=== PATIENT | female | born 1990 | race Two or more races ===

== ENCOUNTER 2016-05-30 03:35 | Inpatient (IN) | payer OTHER ==
[2016-05-30 04:08] VITALS: BMI 30.9
--- NOTE | 2016-05-30 08:04 | US ---
OB LIMITED COMPARISON: None HISTORY: Gestational age 38 weeks 6 days. heart rate decelerations. Evaluate amniotic fluid index: Technique: Transabdominal FINDINGS: Amniotic fluid index: 8.1 cm IMPRESSION: 1. Amniotic fluid index: 8.1 cm. Preliminary report by [facility] radiologist Camryn Contreras MD 05/30/2016 at 06:30
[2016-05-30] MEDS ORDERED: LACTATED RINGERS 1,000 ML IV PRN (11:26)
[2016-05-30] MEDS ORDERED: OXYTOCIN IN LR 500 ML IV ONE ×2 (11:26→11:29)
[2016-05-30] MEDS ORDERED: PUMP TUBING ONE (11:29)
[2016-05-30] MEDS ORDERED: LIDOCAINE 1% (PRES FREE) 30 ML VIAL ONE (11:29)
[2016-05-30] MEDS ORDERED: SODIUM CHLORIDE 0.9% FLUSH 10 ML ONE (11:29)
[2016-05-30] MEDS ORDERED: MINERAL OIL 25 ML BOT ONE (11:29)
[2016-05-30] MEDS ORDERED: IV START KIT ONE (11:29)
[2016-05-30] MEDS ORDERED: OXYTOCIN 10 UNITS/ML VIAL ONE ×4 (11:29→18:35)
[2016-05-30] MEDS ORDERED: LIDOCAINE Viscous 2% 15 ML UDCUP ONE (11:29)
[2016-05-30 12:35] LABS: HEMATOCRIT 42.7 % (37.0-47.0); HEMOGLOBIN 14.8 gm/l (12.0-16.0); MEAN CELL VOLUME 90.3 fl (81.0-99.0); MEAN CORPUSCULAR HEMOGLOBIN 31.3 pg (27.0-31.0); MEAN CORPUSCULAR HGB CONC 34.7 g/dl (33.0-37.0)
[2016-05-30] MEDS ORDERED: OXYTOCIN IN LR 500 ML IV PRN (14:26)
[2016-05-30] MEDS ORDERED: LACTATED RINGERS 1,000 ML IV SCH ×2 (14:30→16:30)
[2016-05-30] MEDS ORDERED: FENTANYL 100 MCG/2 ML VIAL IV PRN (15:56)
[2016-05-30] MEDS ORDERED: EPIDURAL PUMP SET ONE (16:02)
[2016-05-30] MEDS ORDERED: FENTANYL/ROPIVACAINE EPIDURAL 250 ML EP ONE (16:03)
[2016-05-30] MEDS ORDERED: EPHEDRINE SULFATE 50 MG/ML 1ML VIAL IV PRN ×2 (16:30→18:30)
[2016-05-30] MEDS ORDERED: DIPHENHYDRAMINE HCL 50 MG/1 ML VIAL IV PRN ×3 (16:30→19:37)
[2016-05-30] MEDS ORDERED: LACTATED RINGERS 500 ML IV PRN (16:30)
[2016-05-30] MEDS ORDERED: NALBUPHINE HCL 20 MG/ML AMP IV PRN ×2 (16:30→18:30)
[2016-05-30] MEDS ORDERED: SODIUM CHLORIDE 0.9% 500 ML IV PRN (16:30)
[2016-05-30] MEDS ORDERED: ONDANSETRON 4 MG/2ML 2 ML VIAL IV PRN ×3 (16:30→19:37)
[2016-05-30] MEDS ORDERED: NALOXONE HCL 0.4 MG/ML VIAL IV PRN ×2 (16:30→18:30)
[2016-05-30] MEDS ORDERED: METOCLOPRAMIDE HCL 5 MG/ML 2ML VIAL IV PRN (16:30)
[2016-05-30] MEDS ORDERED: EPIDURAL PROCEDURE TRAY ONE (16:31)
[2016-05-30] MEDS ORDERED: SODIUM CHLORIDE 0.9% 500 ML ONE (17:18)
[2016-05-30] MEDS ORDERED: CEFAZOLIN SODIUM 2 GRAM DUPLEX 50 ML IV ONE (17:51)
[2016-05-30] MEDS ORDERED: ROPIVACAINE 0.75% 20 ML AMP ONE (17:52)
[2016-05-30] MEDS ORDERED: FENTANYL 100 MCG/2 ML VIAL ONE (17:53)
[2016-05-30] MEDS ORDERED: MORPHINE SULFATE (DURAMORPH) 1 MG/ML 10ML AMP ONE (18:14)
[2016-05-30] MEDS ORDERED: MORPHINE SULFATE 10 MG/ML SYRINGE IV PRN (18:30)
[2016-05-30] MEDS ORDERED: PROMETHAZINE HCL 25 MG/ML VIAL IM PRN (18:30)
[2016-05-30] MEDS ORDERED: MORPHINE SULFATE 2 MG/ML SYRINGE IV PRN (18:30)
[2016-05-30] MEDS ORDERED: MORPHINE SULFATE 4 MG/ML SYRINGE IV PRN (18:30)
[2016-05-30] MEDS ORDERED: HYDROMORPHONE HCL 1 MG/ML SYRINGE IV PRN (18:30)
[2016-05-30] MEDS ORDERED: HYDROMORPHONE HCL 2 MG/ML SYRINGE IV PRN (18:30)
[2016-05-30] MEDS ORDERED: MIDAZOLAM HCL 1 MG/ML 2ML VIAL ONE (18:33)
[2016-05-30] MEDS ORDERED: PHENYLEPHRINE 10 MG/1 ML (1%) VIAL ONE (18:34)
[2016-05-30] MEDS ORDERED: FLU VACC 2016-17 (36MO-64Y)/PF 60 MCG/0.5 ML SYRINGE IM V ONE (18:36)
[2016-05-30] MEDS ORDERED: KETOROLAC TROMETHAMINE 30 MG/ML 1 ML VIAL ONE (18:38)
[2016-05-30] MEDS ORDERED: KETOROLAC TROMETHAMINE 30 MG/ML 1 ML VIAL IV PRN (18:38)
[2016-05-30] MEDS ORDERED: DIPHTH,PERTUSS(ACELL),TET VAC 0.5 ML VIAL IM V ONE (19:37)
[2016-05-30] MEDS ORDERED: MEASLES,MUMPS&RUBELLA VACCINE 0.5 ML VIAL SUB-Q V ONE (19:37)
[2016-05-30] MEDS ORDERED: DIPHENHYDRAMINE HCL 25 MG CAPSULE PO PRN (19:37)
[2016-05-30] MEDS: D5LR 1,000 ML IV SCH (20:28)
[2016-05-30] MEDS: KETOROLAC TROMETHAMINE 30 MG/ML 1 ML VIAL IV SCH (20:41)
--- NOTE | 2016-05-30 20:55 | HP ---
JHONNY ZAMUDIO [id number] DATE OF SERVICE: 05/30/2016 PREOPERATIVE DIAGNOSIS: Intrauterine at term, with distress. OPERATION PLANNED: A PRIMARY LOW-TRANSVERSE CAESARIAN SECTION. HISTORY OF PRESENT ILLNESS: The patient is a 25-year-old G-1, P-0 woman with an EDC of 06/08/2016, currently at 38 weeks and two days. She has had an uncomplicated course. She presented to labor and delivery early this morning with early labor. Her cervix was really not changing, but the tracing showed that the baby had two eight to ten minute prolonged decelerations, with recovery. Because of that we kept her and kept observing her. The baby started to look better and by 10 o'clock this morning her cervix had changed and was now 390 and -1. She is admitted for labor. She then had artificial rupture of membranes this afternoon, with clear fluid, but the baby has developed again more variables and two prolonged decelerations. An IUPC was placed and an amnioinfusion begun. This did not seem to make a big difference between the decelerations. The baby looks very good, with a reactive tracing, however, her cervix was still 4 cm. We are unable to start the Pitocin because of the decelerations, and I do not think this baby is going to tolerate several more hours of labor, and therefore I have recommended a . PAST MEDICAL HISTORY: Denies major medical problems. PAST SURGICAL HISTORY: None. ALLERGIES: None. MEDICINES: Vitamins. SOCIAL HISTORY: The patient is [place]i-speaking. She lives with her . She does not smoke and does not use alcohol. FAMILY HISTORY: Noncontributory. REVIEW OF SYSTEMS: Patient denies any fever, chills, diarrhea, nausea or constipation. PHYSICAL EXAMINATION: GENERAL: She is a healthy-appearing woman. VITAL SIGNS: Stable. Afebrile. HEENT: Normal. LUNGS: Clear. HEART: Normal S1, S2. ABDOMEN: Soft. Fundal height of 38 cm. Good heart tones as described above. PELVIC: The cervix is 4 cm, 100% effaced, and -1 to -2 station, vertex presentation. IMPRESSION: The patient at term, with persistent variable, unable to tolerate labor. PLAN: To do a primary low-transverse caesarian section.
[2016-05-30] MEDS: DOCUSATE SODIUM 100 MG CAPSULE PO SCH (21:02)
[2016-05-31] MEDS: KETOROLAC TROMETHAMINE 30 MG/ML 1 ML VIAL IV SCH ×4 (01:26→21:01)
[2016-05-31] MEDS: D5LR 1,000 ML IV SCH ×3 (06:36→21:00)
[2016-05-31 07:00] LABS: HEMATOCRIT 36.6 % (37.0-47.0); HEMOGLOBIN 12.7 gm/l (12.0-16.0); MEAN CELL VOLUME 90.8 fl (81.0-99.0); MEAN CORPUSCULAR HEMOGLOBIN 31.5 pg (27.0-31.0); MEAN CORPUSCULAR HGB CONC 34.7 g/dl (33.0-37.0); RED CELL DISTRIBUTION WIDTH 13.1 % (11.5-14.5)
[2016-05-31] MEDS: DOCUSATE SODIUM 100 MG CAPSULE PO SCH ×2 (09:59→21:40)
[2016-05-31] MEDS: PRENATAL VIT/FE FUMARATE/FA 1 TABLET PO SCH (09:59)
--- NOTE | 2016-05-31 11:10 | PDOC44 ---
- Subjective Day: 1 Reports Pain Tolerable, Reports , Reports Lochia Light - Objective Temp Pulse Resp BP Pulse Ox 99.4 F 93 18 102/70 98 05/31/16 09:32 05/31/16 09:32 05/31/16 04:05 05/31/16 09:32 05/31/16 04:05 Lab Results 05/31/16 05/30/16 06:30 12:00 WBC 17.4 H 15.3 H RBC 4.03 L 4.73 Hgb 12.7 D 14.8 Hct 36.6 L 42.7 Plt Count 179 199 05/31/16 05/30/16 06:30 12:00 MCH 31.5 H 31.3 H Current Medications Generic Name Dose Route Start Last Admin Trade Name Freq PRN Reason Stop Dose Admin Diphenhydramine HCl 25 - 50 mg 05/30/16 19:37 Benadryl PO Q6H PRN Itching (Mild/Moderate) Diphenhydramine HCl 25 - 50 mg 05/30/16 19:37 Benadryl IV Q6H PRN Itching (Severe) Diphenhydramine HCl 25 - 50 mg 05/30/16 18:30 Benadryl IV 05/31/16 18:30 Q4H PRN Itching Docusate Sodium 100 mg 05/30/16 21:00 05/31/16 09:59 Colace PO 100 mg BID MIROSLAVA Administration Emollient Ointment 1 applic 05/30/16 19:37 [id number] TP PRN PRN sore nipples Ephedrine Sulfate 5 - 10 mg 05/30/16 18:30 Ephedrine Sulfate IV 05/31/16 18:30 Q5M PRN Hydromorphone HCl 0.5 - 2 mg 05/30/16 18:30 Dilaudid IV 05/31/16 18:30 Q1H PRN Pain (Breakthrough) Hydromorphone HCl 0.5 - 2 mg 05/30/16 18:30 Dilaudid IV 05/31/16 18:30 Q1H PRN Pain Ropivacaine/Fentanyl/NS 250 mls @ 0 mls/hr 05/30/16 16:30 Fentanyl 2 Mcg/Ml + Ropivacaine 0.125% Ep Bag EP EPI MIROSLAVA Protocol Per Protocol Dextrose/Lactated Ringer's 1,000 mls @ 125 mls/hr 05/30/16 19:37 05/31/16 06:36 D5lr IV Not Given .Q8H MIROSLAVA Ibuprofen 800 mg 05/30/16 18:38 Motrin PO Q6H PRN Pain Ketorolac Tromethamine 30 mg 05/30/16 18:38 Toradol IV Q6H PRN Pain (Mild/Moderate) Ketorolac Tromethamine 30 mg 05/30/16 18:30 05/31/16 07:36 Toradol IV 05/31/16 18:30 30 mg Q6H MIROSLAVA Administration Morphine Sulfate 1 - 5 mg 05/30/16 18:30 Morphine Sulfate IV 05/31/16 18:30 Q1H PRN Pain (Breakthrough) Morphine Sulfate 1 - 5 mg 05/30/16 18:30 Morphine Sulfate IV 05/31/16 18:30 Q1H PRN Pain (Breakthrough) Morphine Sulfate 1 - 5 mg 05/30/16 18:30 Morphine Sulfate IV 05/31/16 18:30 Q1H PRN Pain (Breakthrough) Multivi/Iron Carb/Fe Sulf/FA/Prenat 1 tab 05/31/16 09:00 05/31/16 09:59 Plus PO 1 tab DAILY MIROSLAVA Administration Nalbuphine HCl 1 - 5 mg 05/30/16 18:30 Nubain IV 05/31/16 18:30 Q4H PRN Itching Naloxone HCl 0.2 - 0.4 mg 05/30/16 18:30 Narcan IV 05/31/16 18:30 Q5M PRN Ondansetron HCl 4 mg 05/30/16 19:37 05/30/16 21:24 Zofran IV 4 mg Q6H PRN Administration Nausea/Vomiting Ondansetron HCl 4 mg 05/30/16 18:30 Zofran IV 05/31/16 18:30 Q6H PRN Nausea/Vomiting Oxycodone/Acetaminophen 1 - 2 tab 05/30/16 19:37 Percocet 5/325 PO Q4H PRN Pain (Moderate) Promethazine HCl 6.25 - 12.5 mg 05/30/16 18:30 Phenergan IM 05/31/16 18:30 Q4H PRN Nausea/Vomiting Sodium Chloride 10 ml 05/30/16 19:37 05/31/16 07:37 Normal Saline 10ml Flush IV 10 ml PRN PRN Administration IV Flush - Physical Exam General: Afebrile Psych/Mental Status: Mood/Affect Appropriate Breast: Soft Fundus: Firm Abdomen: Normal Bowel Sounds Genitourinary: Normal Female Genitalia Disposition: Stable
--- NOTE | 2016-05-31 13:51 | OP ---
JHONNY ZAMUDIO DATE OF OPERATION: May 30, 2016 PREOPERATIVE DIAGNOSES: Intrauterine at term with distress. POSTOPERATIVE DIAGNOSES: Intrauterine at term with distress OPERATION PERFORMED: PRIMARY LOW-TRANSVERSE SECTION. SURGEON: Jabari Macedo M.D. DIETARY WORKER: Juan Ni M.D. DETAILS OF PROCEDURE: The patient was taken to the operating room with her epidural anesthesia in place. She was placed in the supine position and prepped and draped in the usual sterile fashion. A Pfannenstiel skin incision was made with a scalpel. A second scalpel was used to reach the fascia. The fascial incision was extended with Byrd scissors. The peritoneum was entered with Metzenbaums and extended laterally. A self-retaining retractor was inserted. The peritoneum overlying the lower uterine segment was taken transversely with Metzenbaum scissors, and the bladder was pushed downwards. The uterus was entered making a small amy in the lower uterine segment and extending it laterally with fingers. Amniotic fluid was clear. The umbilical cord was right at the neck and head and the incision against the uterine wall. A liveborn male was delivered from vertex presentation without complication. The placenta was manually removed and complete. The uterus was closed in layers with the first layer being a running locked stitch of 0 Vicryl. The second was an imbricating layer of #0 Vicryl. Hemostasis was checked and found to be good. The tubes and ovaries were normal. The retractors were removed. The anterior peritoneum was closed with a running suture of #2-0 Vicryl. The fascia was closed with two separate running sutures of #0 Vicryl. The skin was closed with malinda. The patient tolerated the procedure well, and was taken to the recovery room in stable condition. All sponge, instrument and needle counts were correct. The estimated blood was 700 mL.
[2016-05-31] MEDS: FENTANYL/ROPIVACAINE EPIDURAL 250 ML EP SCH ×2 (19:46→19:47)
[2016-05-31] MEDS: IBUPROFEN 800 MG TABLET PO PRN (21:40)
[2016-05-31] MEDS: LANOLIN 50 APPLIC/7G TUBE TP PRN (22:39)
[2016-05-31] MEDS: OXYCODONE/ACETAMINOPHEN 5/325 MG TABLET PO PRN (22:40)
[2016-06-01] MEDS: D5LR 1,000 ML IV SCH ×2 (05:53→20:39)
[2016-06-01] MEDS: OXYCODONE/ACETAMINOPHEN 5/325 MG TABLET PO PRN ×4 (05:53→18:43)
[2016-06-01] MEDS: IBUPROFEN 800 MG TABLET PO PRN ×3 (05:53→22:39)
[2016-06-01] MEDS: DOCUSATE SODIUM 100 MG CAPSULE PO SCH ×2 (09:30→20:14)
[2016-06-01] MEDS: PRENATAL VIT/FE FUMARATE/FA 1 TABLET PO SCH (09:31)
--- NOTE | 2016-06-01 11:18 | PDOC44 ---
- Subjective Day: 2 Reports Pain Tolerable, Reports , Reports Lochia Light - Objective Temp Pulse Resp BP Pulse Ox 98.1 F 75 16 101/58 98 06/01/16 08:45 06/01/16 08:45 06/01/16 08:45 06/01/16 08:45 05/31/16 04:05 Current Medications Generic Name Dose Route Start Last Admin Trade Name Freq PRN Reason Stop Dose Admin Diphenhydramine HCl 25 - 50 mg 05/30/16 19:37 Benadryl PO Q6H PRN Itching (Mild/Moderate) Diphenhydramine HCl 25 - 50 mg 05/30/16 19:37 Benadryl IV Q6H PRN Itching (Severe) Docusate Sodium 100 mg 05/30/16 21:00 06/01/16 09:30 Colace PO 100 mg BID MIROSLAVA Administration Emollient Ointment 1 applic 05/30/16 19:37 05/31/16 22:39 [id number] TP 1 bot PRN PRN Administration sore nipples Ropivacaine/Fentanyl/NS 250 mls @ 0 mls/hr 05/30/16 16:30 05/31/16 19:47 Fentanyl 2 Mcg/Ml + Ropivacaine 0.125% Ep Bag EP Not Given EPI MIROSLAVA Protocol Per Protocol Dextrose/Lactated Ringer's 1,000 mls @ 125 mls/hr 05/30/16 19:37 06/01/16 05:53 D5lr IV Not Given .Q8H MIROSLAVA Ibuprofen 800 mg 05/30/16 18:38 06/01/16 05:53 Motrin PO 800 mg Q6H PRN Administration Pain Ketorolac Tromethamine 30 mg 05/30/16 18:38 Toradol IV Q6H PRN Pain (Mild/Moderate) Multivi/Iron Carb/Fe Sulf/FA/Prenat 1 tab 05/31/16 09:00 06/01/16 09:31 Plus PO 1 tab DAILY MIROSLAVA Administration Ondansetron HCl 4 mg 05/30/16 19:37 05/30/16 21:24 Zofran IV 4 mg Q6H PRN Administration Nausea/Vomiting Oxycodone/Acetaminophen 1 - 2 tab 05/30/16 19:37 06/01/16 09:30 Percocet 5/325 PO 1 tab Q4H PRN Administration Pain (Moderate) Sodium Chloride 10 ml 05/30/16 19:37 05/31/16 21:40 Normal Saline 10ml Flush IV 10 ml PRN PRN Administration IV Flush - Physical Exam General: Afebrile Psych/Mental Status: Mood/Affect Appropriate Breast: Soft Fundus: Firm Abdomen: Normal Bowel Sounds Genitourinary: Normal Female Genitalia Wound TITLE SPECIALIST: Well Approximated Disposition: Stable, Anticipate DC Home Tomorrow
[2016-06-01] MEDS: LANOLIN 50 APPLIC/7G TUBE TP PRN (20:13)
[2016-06-02] MEDS: OXYCODONE/ACETAMINOPHEN 5/325 MG TABLET PO PRN ×2 (00:41→08:23)
[2016-06-02] MEDS: IBUPROFEN 800 MG TABLET PO PRN ×2 (05:57→11:09)
[2016-06-02] MEDS: D5LR 1,000 ML IV SCH (06:12)
[2016-06-02] MEDS: DOCUSATE SODIUM 100 MG CAPSULE PO SCH (08:22)
[2016-06-02] MEDS: PRENATAL VIT/FE FUMARATE/FA 1 TABLET PO SCH (08:22)
[2016-06-02 08:46] VITALS: BP 118/85
--- NOTE | 2016-06-02 11:36 | DS ---
JHONNY ZAMUDIO DATE OF ADMISSION: May 30, 2016 DATE OF DISCHARGE: June 02, 2016 ADMITTING DIAGNOSIS: Intrauterine at term with distress. PROCEDURE PERFORMED IN THE HOSPITAL: Primary low transverse section. HISTORY OF PRESENT ILLNESS: The patient is a 1, para 0, woman with an estimated date of confinement of June 08, 2016 currently at 38 weeks and 2 days. She had an uncomplicated course and presented to labor and delivery early on the morning of May 30, 2016 in labor. The cervix was not changing but the tracing showed the baby had two prolonged decelerations. The baby continued to look better and was stable and the cervix changed to 3 cm and 90% effaced. She was admitted for labor and then had artificial rupture of membranes with clear fluid. Amnioinfusion was done because of two long decelerations. This did not seem to make a difference. The baby is looking reactive in between, however, she was still 4 cm and section was recommended. She was taken to the operating room where she underwent a primary low transverse section without complication. This resulted in the delivery of a liveborn baby. Postoperatively the patient did well. She remained afebrile, ambulating without difficulty and tolerating her diet. On the third postoperative day, her malinda were removed, SteriStrips were placed and she was discharged home. She was given a prescription for Percocet and Colace. DISCHARGE FOLLOW UP: She will return to see me in two weeks.
== END 2016-06-02 12:43 | disposition home or self-care (01) | DRG 766 ==
LOC: FBCOUT 03:35 → FBC 03:35 → FBCOUT 11:24 → FBC 11:24
PROVIDERS: ADMIT Obstetrics & Gynecology; ATTEND Obstetrics & Gynecology
PROC: 10D00Z1 Extraction of Products of Conception, Low, Open Approach (ICD-10-PCS; principal; 2016-05-30)
PROC: 10H07YZ Insertion of Other Device into Products of Conception, Via Natural or Artificial Opening (ICD-10-PCS; 2016-05-30)
PROC: 10907ZC Drainage of Amniotic Fluid, Therapeutic from Products of Conception, Via Natural or Artificial Opening (ICD-10-PCS; 2016-05-30)
DX: O77.9 Labor and delivery complicated by fetal stress, unspecified (principal); Z3A.38 38 weeks gestation of pregnancy; Z37.0 Single live birth

== ENCOUNTER 2016-06-06 14:06 | Outpatient (CLI) | payer OTHER | END 2016-06-06 14:07 | disposition home or self-care (01) | LOC: BABIESSH 14:06 | PROVIDERS: ATTEND Obstetrics & Gynecology | DX: Z39.1 Encounter for care and examination of lactating mother (principal) ==